=== PATIENT | male | born 1995 | race Two or more races ===

== ENCOUNTER 2017-02-03 01:05 | Emergency (ER) | payer OTHER ==
[~2017-02-03] VITALS: Ht 177.8 cm; Wt 86.2 kg
[2017-02-03 01:27] VITALS: BP 132/82
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
[2017-02-03 02:02] VITALS: BP 132/82
--- NOTE | 2017-02-03 10:03 | Diagnostic Imaging Report ---
Indication: Pain Findings: 3 views of the left shoulder were obtained. Alignment of the left shoulder is normal. No acute fracture is identified. Soft tissues are unremarkable. Impression: Negative left shoulder examination
== END 2017-02-03 02:02 ==
LOC: EMR 01:30
DX: M25.512 Pain in left shoulder (principal)
CPT/HCPCS: 99283